=== PATIENT | male | born 1955 | race Caucasian/White ===

== ENCOUNTER 2019-06-01 10:37 | Outpatient (CLI) | payer BC | END 2019-06-01 23:59 | disposition home or self-care (01) | LOC: CVU 10:37 → CFH 23:59 | PROVIDERS: ATTEND Internal Medicine Cardiovascular Disease | DX: I35.8 Other nonrheumatic aortic valve disorders (principal); I25.89 Other forms of chronic ischemic heart disease | CPT/HCPCS: 78452; 93017; 93306; A9502 ==

== ENCOUNTER 2019-06-14 08:52 | Inpatient (IN) | payer BC ==
[~2019-06-14] VITALS: Ht 180.3 cm; Wt 110.8 kg
[2019-06-14] MEDS ORDERED: SODIUM CHLORIDE 0.9% 1,000 ML IV SCH (09:01)
[2019-06-14] MEDS ORDERED: LATA7.5D OP (09:21)
[2019-06-14] MEDS ORDERED: LEVO50TA5 PO (09:23)
[2019-06-14] MEDS ORDERED: ROSU10TA2 PO (09:24)
[2019-06-14 09:34] VITALS: BP 138/85
[2019-06-14 09:49] LABS: BASOPHILS # (AUTO) 0.05 x10^3/uL (0-0.1); BASOPHILS % (AUTO) 1 % (0-1); EOSINOPHILS # (AUTO) 0.18 x10^3/uL (0-0.4); EOSINOPHILS % (AUTO) 3 % (1-7); LYMPHOCYTES # (AUTO) 2.11 x10^3/uL (1-3.4); LYMPHOCYTES % (AUTO) 35 % (22-44); MD NO; MEAN CORPUSCULAR HEMOGLOBIN 31.9 pg (27.5-34.5); MEAN CORPUSCULAR HGB CONC 33.4 g/dL (33.2-36.2); MEAN CORPUSCULAR VOLUME 95.6 fL (81-97); MEAN PLATELET VOLUME 9.3 fL (7.4-10.4); MONOCYTES # (AUTO) 0.42 x10^3/uL (0.2-0.8); MONOCYTES % (AUTO) 7 % (2-9); NEUTROPHILS # (AUTO) 3.26 x10^3/uL (1.8-6.8); NEUTROPHILS % (AUTO) 54 % (42-75); PLATELET COUNT 196 x10^3/uL (130-400); RED BLOOD COUNT 5.27 x10^6/uL (4.38-5.82); RED CELL DISTRIBUTION WIDTH 13.1 % (9.4-14.8)
[2019-06-14 09:52] LABS: PROTHROMBIN TIME 10.6 Seconds (9.6-11.5)
[2019-06-14 09:54] LABS: ANION GAP 4 mmol/L (5-15); CALCIUM 9.7 mg/dL (8.5-10.1); CHLORIDE 106 mmol/L (98-107); CREATININE 1.17 mg/dL (0.7-1.3)
[2019-06-14] MEDS ORDERED: VERAPAMIL 2.5 MG/ML, 2ML ONE ×2 (10:12→13:40)
[2019-06-14] MEDS ORDERED: MIDAZOLAM 1 MG/ML, 5ML ONE (10:12)
[2019-06-14] MEDS ORDERED: HEPARIN 1,000 UNITS/ML, 10ML ONE (10:12)
[2019-06-14] MEDS ORDERED: LIDOCAINE-MPF 1%, 5ML ONE ×2 (10:12→13:40)
[2019-06-14] MEDS ORDERED: FENTANYL PF 100 MCG/2ML ONE ×3 (10:12→14:57)
[2019-06-14] MEDS ORDERED: DIPHENHYDRAMINE 50 MG/ML, 1ML ONE (10:32)
[2019-06-14] MEDS ORDERED: LIDOCAINE 1%, 20ML ONE ×2 (10:59→13:57)
[2019-06-14] MEDS ORDERED: MIDAZOLAM 1 MG/ML, 2ML ONE ×3 (13:39→14:57)
[2019-06-14] MEDS ORDERED: BIVALIRUDIN 250 MG ONE (13:51)
[2019-06-14] MEDS: SODIUM CHLORIDE 0.9% 1,000 ML IV SCH ×2 (17:30→19:14)
[2019-06-14] MEDS: METOPROLOL TARTRATE 25 MG TAB PO SCH (18:15)
[2019-06-14 18:59] VITALS: BP 138/86
[2019-06-14] MEDS: TICAGRELOR 90 MG TABLET PO SCH (20:24)
[2019-06-14] MEDS ORDERED: ATORVASTATIN 40 MG TABLET PO SCH (21:00)
[2019-06-14] MEDS ORDERED: ATORVASTATIN 80 MG TABLET PO SCH (21:00)
[2019-06-15] MEDS: SODIUM CHLORIDE 0.9% 1,000 ML IV SCH (02:19)
[2019-06-15 03:15] VITALS: BP 130/68
[2019-06-15] MEDS: METOPROLOL TARTRATE 25 MG TAB PO SCH (05:44)
[2019-06-15 05:49] LABS: ANION GAP 5 mmol/L (5-15); CALCIUM 9.4 mg/dL (8.5-10.1); CHLORIDE 106 mmol/L (98-107); CREATININE 1.21 mg/dL (0.7-1.3)
[2019-06-15] MEDS ORDERED: LEVOTHYROXINE 50 MCG TABLET PO SCH (06:00)
[2019-06-15 08:20] VITALS: BP 119/78
[2019-06-15] MEDS: TICAGRELOR 90 MG TABLET PO SCH (08:28)
[2019-06-15] MEDS ORDERED: METO25TA91 PO (08:38)
[2019-06-15] MEDS ORDERED: ASPI81TA45 PO (08:38)
[2019-06-15] MEDS ORDERED: ISOS30TA8 PO (08:38)
[2019-06-15] MEDS ORDERED: TICA90TA PO (08:38)
[2019-06-15] MEDS ORDERED: ISOSORBIDE MONONITRATE ER 30 MG TABLET PO SCH (09:00)
[2019-06-15] MEDS ORDERED: LATANOPROST OPHTH 0.005%, 2.5ML OP SCH (09:00)
[2019-06-15] MEDS ORDERED: ASPIRIN 81 MG TABLET EC PO SCH (09:00)
== END 2019-06-15 09:50 | disposition home or self-care (01) | DRG 215 ==
LOC: CACL 08:52 → 5SO 15:41 → CACL 06-15 01:04 → 5SO 06-15 01:05
PROVIDERS: ADMIT Internal Medicine Cardiovascular Disease; ATTEND Internal Medicine Cardiovascular Disease
PROC: 4A023N7 Measurement of Cardiac Sampling and Pressure, Left Heart, Percutaneous Approach (ICD-10-PCS; principal; 2019-06-14)
PROC: 02HA3RJ Insertion of Short-term External Heart Assist System into Heart, Intraoperative, Percutaneous Approach (ICD-10-PCS; 2019-06-14)
PROC: 027135Z Dilation of Coronary Artery, Two Arteries with Two Drug-eluting Intraluminal Devices, Percutaneous Approach (ICD-10-PCS; 2019-06-14)
PROC: 5A0221D Assistance with Cardiac Output using Impeller Pump, Continuous (ICD-10-PCS; 2019-06-14)
PROC: B2111ZZ Fluoroscopy of Multiple Coronary Arteries using Low Osmolar Contrast (ICD-10-PCS; 2019-06-14)
PROC: B2151ZZ Fluoroscopy of Left Heart using Low Osmolar Contrast (ICD-10-PCS; 2019-06-14)
DX: I25.110 Atherosclerotic heart disease of native coronary artery with unstable angina pectoris (principal); Z99.11 Dependence on respirator [ventilator] status; E03.9 Hypothyroidism, unspecified; E66.9 Obesity, unspecified; E78.5 Hyperlipidemia, unspecified; I10 Essential (primary) hypertension; I25.5 Ischemic cardiomyopathy; I71.9 Aortic aneurysm of unspecified site, without rupture; Z68.34 Body mass index [BMI] 34.0-34.9, adult
CPT/HCPCS: 33990; 36415; 93458; C9600; J3490; 80048; 85014; 85018; 85025; 85610; 93880; 93970; 99156; 99157; C1760; C1769; C1894; G0378; J0583; J1644; J2250; J3010; C1725; C1874; C1887; J1200; Q9967

== ENCOUNTER → 2019-08-21 | Outpatient (CLI) | payer BC ==
[~2019-08-21] MED LIST: ASPI81TA45 PO; ISOS30TA8 PO; LATA7.5D OP; LEVO50TA5 PO; METO25TA91 PO; ROSU10TA2 PO; TICA90TA PO
== END | disposition home or self-care (01) ==
LOC: CFH 10:28
PROVIDERS: ATTEND Internal Medicine
DX: M25.461 Effusion, right knee (principal)

== ENCOUNTER → 2019-12-11 | Outpatient (CLI) | payer BC | END | disposition home or self-care (01) | LOC: CVU 12:29 | PROVIDERS: ATTEND Internal Medicine Cardiovascular Disease | DX: I65.23 Occlusion and stenosis of bilateral carotid arteries (principal); Z95.5 Presence of coronary angioplasty implant and graft | CPT/HCPCS: 93880 ==